=== PATIENT | male | born 2000 ===

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

== ENCOUNTER 2019-04-30 16:46 | Emergency (ER) | payer MEDICAID ==
[2019-04-30] MEDS ORDERED: Bacitracin 500 Units/gm Oint Foilpak UD TOP STA (17:25)
[2019-04-30] MEDS ORDERED: Bacitracin 500 Units/gm Oint Foilpak UD ONE (17:32)
--- NOTE | 2019-04-30 17:43 | ED PDOC ---
Upper Extremity Pain/Injury Time Seen by Provider: 04/30/19 17:11 Chief Complaint (Nursing): Upper Extremity Problem/Injury Chief Complaint (Provider): Left Arm Injury History Per: Patient History/Exam Limitations: no limitations Onset/Duration Of Symptoms: Days (x2) Current Symptoms Are (Timing): Still Present Additional Complaint(s): 19 year old male presents to the ED with mother for evaluation of a left arm abrasion, pain and injury. Patient reports that two days ago he jumped over a puddle but slipped upon landing, falling foreword onto the left arm, scraping it against the ground. He says the pain is worsening despite washing with antibacterial soap and taking Ibuprofen, last dose 2 tabs one hour ago which provided some relief. Patient states the pain began shooting down his left arm from the elbow to his fingers associated with some numbness, which has now resolved. Otherwise, denies neck pain. Of note, he is on his last day of a doxycycline prescription for "boogers in [his] left lung." Vaccinations up to date Past Medical History Reviewed: Historical Data, Nursing Documentation, Vital Signs Vital Signs: Last Vital Signs Temp 98.9 F 04/30/19 17:06 Pulse 85 04/30/19 17:06 Resp 16 04/30/19 17:06 BP 141/83 04/30/19 17:06 Pulse Ox 99 04/30/19 17:06 Primary Care Provider: Michael Dozier - Medical History PMH: No Chronic Diseases - Surgical History Surgical History: Appendectomy - Family History Family History: States: Unknown Family Hx - Living Arrangements Living Arrangements: With Family - Social History Current smoker - smoking cessation education provided: No Alcohol: None Drugs: Denies - Home Medications Home Medications: Ambulatory Orders Medication Instructions Recorded Ibuprofen [Motrin] 600 mg PO Q8 PRN #21 tab 06/03/17 Ibuprofen [Motrin Tab] 600 mg PO Q6 PRN #20 tab 04/30/19 - Allergies Allergies/Adverse Reactions: Allergies Allergy/AdvReac Type Severity Reaction Status Date / Time No Known Allergies Allergy Verified 04/30/19 17:07 Review of Systems ROS Statement: Except As Marked, All Systems Reviewed And Found Negative Musculoskeletal: Positive for: Arm Pain (left arm abrasion and pain). Negative for: Neck Pain Neurological: Positive for: Numbness (to left arm) Physical Exam - Reviewed Nursing Documentation Reviewed: Yes Vital Signs Reviewed: Yes - Physical Exam Comments: GENERAL APPEARANCE: Patient is awake, alert, oriented x 3, in no acute distress. SKIN: Warm, dry; (-) cyanosis. NECK: full ROM, (-) tenderness LEFT UPPER EXTREMITY: decreased ROM to elbow with swelling and abrasion to lateral aspect and tenderness to posterior aspect. Capillary refill less than 2 seconds. Good bond broker strength. Remainder of arm non-tender with full ROM CARDIOVASCULAR: (+) 2+ distal pulse. NEUROLOGIC: (+) distal sensation. - ECG O2 Sat by Pulse Oximetry: 99 (RA) Pulse Ox Interpretation: Normal Medical Decision Making Medical Decision Making: Time: 1725 Initial Impression: left arm abrasion Initial Plan: --Left elbow XR --Wound cleaned and covered with bacitracin 18:30 xray reviewed by me - no obvious fracture or dislocation, due to pt's pain will have radiology read 18:40 on re eval pt reports pain coming back, will give Tylenol PO, informed of my xray read and pending radiology read 21:20 XR FINDINGS: BONES: No acute fracture or aggressive appearing osseous lesion. JOINTS: The joint spaces appear within normal limits. No dislocation. No radiographic evidence of a joint effusion. SOFT TISSUES: Diffuse subcutaneous soft tissue swelling is seen. IMPRESSION: Diffuse subcutaneous soft tissue swelling. No acute osseous abnormality. Electronically signed on April 30, 2019 9:20:06 PM EDT by: Nando Castro M.D., M.B.A., Certified By [employer] Trained MRI and CT Specialist pt provided with sling for support, pt's pain is again improved, NVI Discussed results, diagnosis, treatment, return precautions and f/u with pt who is understanding, in agreement and stable for dc Scribe Attestation: Documented by Grecia Jones, acting as a scribe for Esdras Belinda-Roga, PA-C. Provider Scribe Attestation: All medical record entries made by the Scribe were at my direction and personally dictated by me. I have reviewed the chart and agree that the record accurately reflects my personal performance of the history, physical exam, medical decision making, and the department course for this patient. I have also personally directed, reviewed, and agree with the discharge instructions and disposition. Disposition - Clinical Impression Clinical Impression: Abrasion, elbow w/o infection, Elbow, crushing injury - Patient ED Disposition Is Patient to be Admitted: No Counseled Patient/Family Regarding: Studies Performed, Diagnosis, Need For Followup, Rx Given - Disposition Referrals: Zoran Romero III, MD [Staff Provider] - Disposition: Routine/Home Disposition Time: 21:24 Condition: STABLE Additional Instructions: Thank you for letting us take care of you today. The emergency medical care you received today was directed at your acute symptoms. If you were prescribed any medication, please fill it and take as directed. It may take several days for your symptoms to resolve. Rest, ice and elevate. Wear sling for support. Apply neosporin/bacitracin 1-2 times a day. Clean gently with soap and water. Return to the Emergency Department if your symptoms worsen, do not improve, or if you have any other problems. Please contact your doctor in 2 days for re-evaluation and follow up / or call one of the physicians/clinics you have been referred to that are listed on the Patient Visit Information form that is included in your discharge packet. Bring any paperwork you were given at discharge with you along with any medications you are taking to your follow up visit. Our treatment cannot replace ongoing medical care by a primary care provider (PCP) outside of the emergency department. Prescriptions: Ibuprofen [Motrin Tab] 600 mg PO Q6 PRN #20 tab PRN Reason: Pain, Moderate (4-7) Instructions: Skin Abrasions, Crush Injury, Elbow Sprain (DC) Forms: [facility] (Occitan) Print Language: SAMI - POA Present On Arrival: None
[2019-04-30 21:41] VITALS: BP 148/84; PULSE 78; RESP 18; TEMP 97.6
[2019-04-30 22:58] VITALS: O2SAT 99
--- NOTE | 2019-05-01 15:15 | RAD ---
Date of service: 04/30/2019 PROCEDURE: Radiographs of the left elbow. HISTORY: injury, pain, swelling COMPARISON: No prior. TECHNIQUE: 3 views obtained. FINDINGS: BONES: Normal. No fracture. JOINTS: Normal. No osteoarthritis. SOFT TISSUES: Soft tissue swelling/injury adjacent to the radial head. No visualized radiopaque foreign body. JOINT EFFUSION: None. OTHER FINDINGS: None IMPRESSION: Soft tissue swelling without acute articular or osseous abnormality.
== END 2019-04-30 21:26 | disposition home or self-care (01) ==
LOC: H.ER 16:46
DX: S40.812A Abrasion of left upper arm, initial encounter (principal); S50.319A Abrasion of unspecified elbow, initial encounter